=== PATIENT | female | born 1980 | race Caucasian/White ===

== ENCOUNTER → 2018-11-18 | Outpatient (CLI) | payer BC ==
[2018-11-18 10:48] LABS: ALBUMIN 4.4 g/dL (3.5-5.0); CALCIUM 9.5 mg/dL (8.4-10.2); POTASSIUM 4.1 mmol/L (3.6-5.0); TOTAL BILIRUBIN 0.8 mg/dL (0.2-1.3); TOTAL PROTEIN 7.5 g/dL (6.3-8.2)
[2018-11-19 00:03] LABS: ESTRADIOL 36 pg/mL (()); PROGESTERONE 0.3 ng/mL (()); T3 FREE 3.3 pg/mL (1.7-3.7)
== END ==
LOC: LAB 10:01
PROVIDERS: Emergency Medicine
DX: Z13.228 Encounter for screening for other metabolic disorders (principal); E03.9 Hypothyroidism, unspecified; G47.00 Insomnia, unspecified; E31.9 Polyglandular dysfunction, unspecified; R68.82 Decreased libido; R53.82 Chronic fatigue, unspecified; Z80.3 Family history of malignant neoplasm of breast

== ENCOUNTER → 2021-03-01 | Outpatient (CLI) | payer BC ==
[2021-03-01 12:17] LABS: URINE APPEARANCE HAZY; URINE BILIRUBIN NEGATIVE (NEGATIVE); URINE BLOOD NEGATIVE (NEGATIVE); URINE COLOR YELLOW; URINE GLUCOSE NEGATIVE (NEGATIVE); URINE KETONE NEGATIVE (NEGATIVE); URINE LEUKOCYTE ESTERASE TRACE (NEGATIVE); URINE MUCUS PRESENT (NOT PRESENT); URINE NITRATE NEGATIVE (NEGATIVE); URINE PROTEIN(semi-quant) NEGATIVE (NEGATIVE); URINE UROBILINOGEN NORMAL (NORMAL)
== END ==
LOC: LAB 11:50
PROVIDERS: Family Medicine
DX: R30.9 Painful micturition, unspecified (principal)